=== PATIENT | female | born 1995 | race African-American/Black ===

== ENCOUNTER 2020-05-22 09:19 | Emergency (ER) | payer BC, OTHER, SELFPAY ==
[2020-05-22 10:31] LABS: Anion Gap 12 mmol/L (10-20); BUN (Urea Nitrogen) 13 mg/dL (7.0-18.7); Calc. Creatinine Clearance 0 mL/min (70-130); Calcium 8.9 mg/dL (7.8-10.44); Carbon Dioxide 25 mmol/L (22-29); Chloride 104 mmol/L (98-107); Glucose 119 mg/dL (70-105); Potassium 4.1 mmol/L (3.5-5.1); Sodium 137 mmol/L (136-145)
[2020-05-22 10:33] LABS: #Basophils 0.1 thou/uL (0.0-0.2); #Eosinphils 0.1 thou/uL (0.0-0.7); #Lymphocytes 2.4 thou/uL (1.20-3.40); #Monocytes 0.5 thou/uL (0.11-0.59); #Neutrophils 2.3 thou/uL (1.40-6.50); %Basophils 1.8 % (0.0-1.0); %Eosinophils 1.5 % (0.0-10.0); %Lymphocytes 44.7 % (21.0-51.0); %Monocytes 8.6 % (0.0-10.0); %Neutrophils 43.3 % (42.0-75.0); Hemoglobin 11.4 g/dL (12.0-16.0); Mean Corpuscular HGB CONC 31.2 g/dL (32.0-36.0); Mean Corpuscular Hemoglobin 25.1 pg (27.0-31.0); Mean Corpuscular Volume 80.4 fL (78.0-98.0); Mean Platelet Volume 8.6 fL (7.4-10.4); Platelet Count 273 thou/uL (130-400); RBC Distribution Width 14.3 % (11.5-14.5); Red Blood Cell (RBC) Count 4.56 mill/uL (4.20-5.40); White Blood Cell (WBC) Count 5.4 thou/uL (4.8-10.8)
[2020-05-22 10:40] LABS: Bilirubin Negative (Negative); Blood, Urine Moderate (Negative); Clarity Clear (Clear); Glucose, Urine (Dipstick) Negative (Negative); Ketone, Urine Negative (Negative); Leukocyte Negative (Negative); Nitrite Negative (Negative); Protein, Urine (Dipstick) Negative (Neg-Trace); Specific Gravity, Urine 1.025 (1.005-1.030); Urobilinogen 0.2 mg/dL (Less than 2); pH, Urine 6.5 (5.0-9.0)
[2020-05-22 10:41] LABS: BHCG - Serum Negative (NEGATIVE)
[2020-05-22 10:42] LABS: Pregs Control Bar Appear? YES (CONTROL BAR)
[2020-05-22 10:45] LABS: Bacteria/HPF Rare-Few HPF (None Seen); Squamous Epithelial 0-3 HPF (0-3); WBC/HPF 0-3 HPF (0-3)
== END 2020-05-22 10:50 | disposition home or self-care (01) ==
LOC: NAV ERS 09:19
DX: N93.9 Abnormal uterine and vaginal bleeding, unspecified (principal)
CPT/HCPCS: 80048; 81003; 81015; 84703; 85025; 99284

== ENCOUNTER 2020-07-23 07:58 | Emergency (ER) | payer BC ==
[2020-07-24 00:56] LABS: SARS-CoV-2 PCR by NAA Not Detected (NotDetected)
== END 2020-07-23 08:24 | disposition home or self-care (01) ==
LOC: NAV ERS 07:58
DX: B34.9 Viral infection, unspecified (principal); J06.9 Acute upper respiratory infection, unspecified; Z20.822 Contact with and (suspected) exposure to COVID-19
CPT/HCPCS: 87635; 99283; U0003; U0005

== ENCOUNTER 2020-08-18 15:30 | Emergency (ER) | payer BC | END 2020-08-18 15:59 | disposition home or self-care (01) | LOC: NAV ERS 15:30 | DX: N76.0 Acute vaginitis (principal) | CPT/HCPCS: 99283 ==

== ENCOUNTER 2021-01-21 10:40 | Emergency (ER) | payer BC ==
[2021-01-22 19:28] LABS: SARS-CoV-2 PCR by NAA Not Detected (NotDetected)
== END 2021-01-21 11:20 | disposition home or self-care (01) ==
LOC: NAV ERS 10:40
DX: B34.9 Viral infection, unspecified (principal); Z20.822 Contact with and (suspected) exposure to COVID-19
CPT/HCPCS: 99283; U0003; U0005

== ENCOUNTER 2021-03-11 17:38 | Emergency (ER) | payer BC ==
[2021-03-11 19:07] LABS: Bilirubin Negative (Negative); Blood, Urine Trace (Negative); Glucose, Urine (Dipstick) 100 mg/dL (Negative); Ketone, Urine Negative (Negative); Leukocyte Small (Negative); Nitrite Negative (Negative); Protein, Urine (Dipstick) Negative (Neg-Trace); Urobilinogen 0.2 mg/dL (Less than 2)
[2021-03-11 19:12] LABS: Clarity SL HAZY (Clear)
[2021-03-11 19:15] LABS: Pregnancy Test - Urine (BHCG) POSITIVE (Negative); Pregu Control Background? CLEAR/WHITE (CLR/WHITE); Pregu Control Bar Appear? YES (CONTROL BAR); Specific Gravity 1.027 (1.002-1.036)
[2021-03-11 19:17] LABS: RBC/HPF 0-3 HPF (0-3)
[2021-03-11 19:18] LABS: Specific Gravity, Urine 1.027 (1.002-1.036); Transitional Epithelial 0-3 HPF (None Seen)
== END 2021-03-11 20:35 | disposition home or self-care (01) ==
LOC: NAV ERS 17:38
DX: O98.519 Other viral diseases complicating pregnancy, unspecified trimester (principal); U07.1 COVID-19; O23.10 Infections of bladder in pregnancy, unspecified trimester
CPT/HCPCS: 81003; 81015; 81025; 84702; 99284

== ENCOUNTER 2022-10-09 15:37 | Emergency (ER) | payer BC | END 2022-10-09 16:10 | disposition home or self-care (01) | LOC: NAV ERS 15:37 | DX: J06.9 Acute upper respiratory infection, unspecified (principal) | CPT/HCPCS: 99283 ==